=== PATIENT | female | born 1990 | race Caucasian/White ===

== ENCOUNTER 2017-04-27 17:22 | Inpatient (IN) | payer MEDICAID, OTHER ==
[2017-04-27] MEDS ORDERED: PENICILLIN G POTASSIUM 5 MILLIONUNT in DEXTROSE 5 % IN WATER 100 ML IV ONE ×2 (18:07)
[2017-04-27] MEDS ORDERED: RINGER'S SOLUTION,LACTATED 1,000 ML IV PRN ×2 (18:16→19:27)
--- NOTE | 2017-04-27 18:49 | HP ---
Chief Complaint - Chief Complaint Date of Service: 04/27/17 Time of Service: 18:28 Chief Complaint: leaking fluid History of Present Illness: To [facility] labor and delivery complaining of leaking of fluid since morning. Patient's states she was seen at [facility] for above complaint. Hospital records reveal an SANIA of 21 cm and no signs of ruptured membranes. Patient was breech at that time and was given betamethasone. She continues having leaking of fluid and noted to have gross rupture of membranes with positive nitrazine. Bedside ultrasound reveals baby in fredy breech presentation with a subjectively adequate amount of amniotic fluid. Patient complains of contractions every 2-3 minutes of moderate intensity. She denies headache, epigastric pain, nausea, vomiting, fever, chills, or foul- smelling vaginal discharge. This complicated by depression and migraines. - Patient's Past Medical History Patient History - Medical: Depression, Migraines Patient History - Cardiac/Respiratory: No pertinent hx Patient History - Cancer: No Hx of Cancer Patient History - Surgical Procedures: Urology - bilateral ureteral reimplantation 1994 Patient History - Other: None LMP (females 10-50): - 35 1/7 wks by LMP LMP (Calendar): 08/24/16 - Family History Family History:: no untoward family reactions to anesthesia, no familial bleeding tendencies, no family history of clotting disorders, no family history of premature - Social History Psych History: Hx of Depression Does anyone smoke in the home?: Yes Smoking Status: Current every day smoker Cigarettes Packs Per Day: 5 Have you smoked in the past 12 months: No Do you dip or chew tobacco: No Smoking Start Date: 03/25/08 Patient requests Smoking Cessation Consult: No Initiate information on Smoking Cessation: Yes Alcohol Use: none Drug Use: none - Immunizations Immunizations Up to Date: Yes Review Of Systems (GEN) - Review of Systems EENTM: Present: No Symptoms Reported Respiratory: Present: No Symptoms Reported Cardiac: Present: No Symptoms Reported Abdominal: Present: Other - contractions Genitourinary: Present: Other - leakin fluid x 5 days Musculoskeletal: Present: No Symptoms Reported Neurological: Present: No Symptoms Reported Skin: Present: No Symptoms Reported Endocrine: Present: No Symptoms Reported Allergies/Adverse Reactions: Allergies Allergy/AdvReac Type Severity Reaction Status Date / Time No Known Allergies Allergy Verified 04/27/17 17:33 Home Medications: HOME MEDICATIONS Acetaminophen with Codeine [Tylenol with Codeine #3 Tablet] 1 each PO Q6H PRN [Last Taken 04/26/17] Vits96/Iron Fum/Folic [ S] 1 tab PO DAILY 04/27/17 [Last Taken 04/27/17 09:00] Procardia Xl 04/27/17 [Last Taken 04/27/17] Sertraline HCl [Zoloft] 50 mg PO DAILY 04/27/17 [Last Taken 04/27/17 09:00] traMADol HCL 04/27/17 [Last Taken 04/25/17] Exam - Exam Constitutional: Present: Alert, Oriented x3, Cooperative, No distress ENT Exam: Present: hearing grossly normal Neck: Present: non-tender Back Exam: Present: no CVA tenderness Breasts: Present: Exam deferred Respiratory: Present: lungs clear, normal breath sounds Cardiovascular/Chest: Present: normal peripheral pulses, regular rate, rhythm, no edema Abdomen: Present: soft, nontender, obese /Rectal: Present: External genitalia normal, Other - cervix /-3, gross ROM - clear fluid Extremity: Present: normal range of motion, non-tender, no pedal edema, no calf tenderness Skin Exam: Present: normal color, warm/dry, no cyanosis Neurologic: Present: oriented x 3 Appearance: Present: appropriate appearance, appropriate insight Eye contact: Present: cooperative, good eye contact, normal speech Thoughts: Present: normal thought pattern, normal mood /affect Assessment/Plan - Narrative Narrative: 35 1/7 week intrauterine in labor with premature rupture of membranes and breech presentation. Because presenting part is not firmly applied to the cervix transport to a tertiary care center is too dangerous at this moment. Risk, benefits, and alternatives discussed with patient. She desires a trial of external cephalic version with the understanding of possible emergent section. If version is successful we'll transferred to [facility] and [facility] if remains stable for transport. - Assessment/Plan (1) labor in third trimester Problem: Acute Qualifiers: Fetus number: single or unspecified fetus Qualified Code(s): O60.14X0 - labor third trimester with delivery third trimester, not applicable or unspecified (2) Breech presentation Problem: Acute Qualifiers: Fetus number: single or unspecified fetus Qualified Code(s): O32.1XX0 - Maternal care for breech presentation, not applicable or unspecified (3) Premature rupture of membranes (PROM) affecting fourth Assessment: External cephalic version performed that baby quickly reverted back to double footling breech presentation. Risks benefits alternatives discussed with the patient she does not desire further attempt at external cephalic version and would like to proceed with section. Problem: Acute
[2017-04-27] MEDS ORDERED: TERBUTALINE SULFATE 1 MG/ML VIAL SC PRN (18:50)
[2017-04-27] MEDS ORDERED: TERBUTALINE SULFATE 1 MG/ML VIAL ONE (18:50)
[2017-04-27] MEDS ORDERED: ceFAZolin SODIUM/DEXTROSE,ISO 2 GM/50 ML BAG IV ONE (19:27)
[2017-04-27] MEDS ORDERED: OXYTOCIN 20 UNITS in RINGER'S SOLUTION,LACTATED 1,000 ML IV ONE (19:27)
[2017-04-27] MEDS ORDERED: RINGER'S SOLUTION,LACTATED 900 ML IV ONE (19:40)
[2017-04-27] MEDS ORDERED: RINGER'S SOLUTION,LACTATED 1,000 ML IV ONE (21:03)
--- NOTE | 2017-04-27 21:32 | OR ---
Anesthesia Procedure Note - Anesthesia Procedure Note Date of Service: 04/27/17 Narrative: Vital Signs - Last Taken Temp 36.2 C L 04/27/17 21:30 Pulse 98 04/27/17 21:30 Resp 19 04/27/17 21:30 BP 126/82 04/27/17 21:30 Pulse Ox 100 04/27/17 21:30 O2 Oxygen Delivery Method Room Air 04/27/17 21:31 ANESTHESIA PROCEDURE NOTE Date of Procedure: 04/27/2017. Time of procedure: 2114. Performed by: Rom Morris CRNA Cheese Production Supervisor: None. Preprocedure diagnosis: Status post primary . Post procedure diagnosis: Same. Procedure: Bilateral ultrasound-guided transversus abdominis plane block for postop analgesia. Indications: The patient is a 27 -year-old female post section. Findings: See below. Details of the procedure: ChloraPrep was used on the patient's abdomen and the procedure was performed under sterile technique. The right abdominal fascial layer between the internal oblique muscle and the transversus abdominis muscles was identified under ultrasound guidance. A 22-gauge 4 inch block needle was inserted under ultrasound guidance to the target fascial plane. 15 mL's of 0.5 % bupivacaine plus epinephrine 1 200,000 was injected after negative aspiration for blood. The needle was removed intact and the procedure was then repeated at the left side. No complications were noted. The images were retained in the Hospital medical database . EBL: Minimal. Fluids: N/A. Specimen: N/A. Post procedure condition: The patient tolerated the procedure well. No complications were noted. Thank you for this consultation. Rom Morris CRNA
--- NOTE | 2017-04-27 21:38 | OR ---
Operative Report - Dictated Report Narrative: Pre Operative Diagnosis: 35 1/7 weeks intrauterine , premature ruptured membranes, labor, double footling breech presentation with failed external cephalic version Post Operative Diagnosis: Same. Procedure Preformed: Primary Low Transverse Section, abdominal scar revision (16 cm) Surgeon: Geraldo Masters DO Sky Line Yarder: OR Staff Anesthesia: Spinal ,TAP block Estimated Blood Loss: 300 mL Urine Output: 200 mL Fluids Given: 1900 mL Drains: Morrow to gravity Surgical Complications: None Specimens: Placenta to pathology Findings: Female born at 2012 on 04/27/2016 with Apgars 9 and 9, weighing 2902 g in double footling breech presentation. Normal uterus, tubes, ovaries. Indication: 27-year-old 4 para 3 at 35-1/7 weeks presented with pre- term premature ruptured membranes in labor with double footling breech presentation. After counseling on the risks, benefits, and alternatives, an external cephalic version was attempted. The baby converted to cephalic presentation but quickly reverted back to its breech presentation. Patient declined further attempts at external cephalic version and we proceeded with a primary low transverse section. Patient had 2 urological surgeries at age 5 with a lower abdominal incision with bothersome skin retraction, therefore this incision was excised. Technique: The patient was taken to the operating room and placed in dorsal supine position with a left lateral tilt. After adequate spinal anesthesia, morrow catheter insertion,SCDs placed, and 2 g of Ancef given preoperatively, an elliptical incision was made over the previous scar. The incision was extended to the fascia which was nicked in midline and extended laterally with blunt and sharp dissection on either end. The rectus muscles were and the peritoneal cavity was entered with blunt dissection. Two rolled laps were placed in the pericolic gutters on either side of the uterus. A transverse incision was made in the lower uterine segment and extended laterally and upwardly with digital traction. Clear fluid was noted upon amniotomy. The infant was delivered easily. The cord was clamped and cut and was handed off to awaiting dermatology nurse practitioner. The placenta was allowed to deliver spontaneously. The uterus was cleared of clot and debris. Uterine incision was closed with 0 Vicryl using a running stitch. A second imbricating layer was placed. Excellent hemostasis was noted. Rolled laps were removed from the abdominal cavitiy. The peritoneum was closed with a running 3-0 Monocryl. The same suture was used to approximate the rectus and pyramidalis muscles. The fascia was closed with a running 0 Vicryl. The subcutaneous layer was closed with a running 3-0 Monocryl. The same suture was used to approximate the subdermal layer. The skin was closed with a running 4-0 Monocryl and Dermabond. Sponge, lap, needle, and instrument count were correct x 2. Disposition: The patient was transferred to post anesthesia care unit in good condition
[2017-04-27] MEDS ORDERED: SENNOSIDES 8.6 MG TABLET PO PRN (22:32)
[2017-04-27] MEDS ORDERED: BISACODYL 10 MG SUPP.RECT RC PRN (22:32)
[2017-04-27] MEDS ORDERED: SIMETHICONE 80 MG TAB.CHEW PO PRN (22:32)
[2017-04-27] MEDS ORDERED: ONDANSETRON HCL/PF 2 MG/ML VIAL IV PRN (22:32)
[2017-04-27] MEDS ORDERED: oxyCODONE HCL/ACETAMINOPHEN 1 TAB TABLET PO PRN (22:32)
[2017-04-27 22:43] LABS: Cocaine Ur Negative (NEGATIVE); Urine Barbiturate Negative (NEGATIVE); Urine Benzodiazepines Negative (NEGATIVE); Urine Opiates Negative (NEGATIVE); Urine PCP Negative (NEGATIVE); Urine THC Negative (NEGATIVE)
[2017-04-27] MEDS: IBUPROFEN 800 MG TABLET PO PRN (23:17)
[2017-04-27] MEDS: oxyCODONE HCL/ACETAMINOPHEN 1 TAB TABLET PO PRN (23:17)
[2017-04-28] MEDS: oxyCODONE HCL/ACETAMINOPHEN 1 TAB TABLET PO PRN ×4 (04:32→19:35)
[2017-04-28] MEDS: IBUPROFEN 800 MG TABLET PO PRN ×2 (08:50→19:34)
[2017-04-28] MEDS: DOCUSATE SODIUM 100 MG CAPSULE PO SCH ×2 (09:32→21:23)
[2017-04-28] MEDS: ENOXAPARIN SODIUM 40 MG/0.4 ML SYRG SC SCH (09:39)
--- NOTE | 2017-04-28 10:55 | PN ---
Subjective - Date and Time Seen Date: 04/28/17 Time: 10:53 Objective - Vitals Vitals: Last Vital Signs Temp 36.6 C 04/28/17 10:28 Pulse 86 04/28/17 10:28 Resp 18 04/28/17 10:28 BP 110/60 04/28/17 10:28 Pulse Ox 99 04/28/17 10:28 Patient denies complaints. Tolerating regular diet. Ambulating without difficulty. Pain well controlled. Lochia wnl. Abdomen - soft, appropriately tender Incision - clean, dry, intact Uterus - firm, at umbilicus -1 No calf tenderness Impression: Post op day #1 s/p primary section with abdominal scar revision from previous urological surgery. 35 1/7 week delivery-baby being transferred this morning to [facility] and [facility] for unstable blood sugars and respiratory problems. Plan: Continue routine post-operative/ care. We'll plan on early discharge tomorrow if mother continues to do well. Cauti Physician Documentation - Urinary Catheter Management 3-way Urethral Date of Insertion: 04/27/17 Time of Insertion: 19:55 Date of Removal: 04/28/17 Time of Removal: 08:00 Assessment/Plan - Problems/Diagnosis (1) labor in third trimester Problem: Acute Qualifiers: Fetus number: single or unspecified fetus Qualified Code(s): O60.14X0 - labor third trimester with delivery third trimester, not applicable or unspecified (2) Breech presentation Problem: Acute Qualifiers: Fetus number: single or unspecified fetus Qualified Code(s): O32.1XX0 - Maternal care for breech presentation, not applicable or unspecified (3) Premature rupture of membranes (PROM) affecting fourth Problem: Acute
[2017-04-29] MEDS: oxyCODONE HCL/ACETAMINOPHEN 1 TAB TABLET PO PRN ×3 (01:19→13:48)
[2017-04-29] MEDS: IBUPROFEN 800 MG TABLET PO PRN ×2 (07:35→13:48)
[2017-04-29 08:21] VITALS: BP 138/85
[2017-04-29] MEDS: ENOXAPARIN SODIUM 40 MG/0.4 ML SYRG SC SCH (09:42)
[2017-04-29] MEDS: DOCUSATE SODIUM 100 MG CAPSULE PO SCH (09:42)
--- NOTE | 2017-04-29 13:22 | PN ---
Subjective - Date and Time Seen Date: 04/29/17 Time: 13:19 Objective - Vitals Vitals: Last Vital Signs Temp 36.5 C 04/29/17 07:30 Pulse 80 04/29/17 07:30 Resp 20 04/29/17 07:30 BP 138/85 04/29/17 07:30 Pulse Ox 100 04/29/17 07:30 Patient denies complaints. Ambulating well. Tolerating regular diet. Pain well controlled. Lochia wnl. Abdomen - soft, appropriately tender Incision - clean, dry, intact Uterus - firm, at umbilicus -2 No calf tenderness Impression: Post op day #2 s/p primary section with abdominal scar revision from previous urological surgery. 35 1/7 week delivery-baby being transferred this morning to [facility] for unstable blood sugars and respiratory problems. Plan: Continue routine post-operative/ care. Routine discharge instructions. Follow-up with her [employer] in 2 weeks for incision check and to schedule tubal ligation. Cauti Physician Documentation - Urinary Catheter Management 3-way Urethral Date of Insertion: 04/27/17 Time of Insertion: 19:55 Date of Removal: 04/28/17 Time of Removal: 08:00 Assessment/Plan - Problems/Diagnosis (1) labor in third trimester Problem: Acute Qualifiers: Fetus number: single or unspecified fetus Qualified Code(s): O60.14X0 - labor third trimester with delivery third trimester, not applicable or unspecified (2) Breech presentation Problem: Acute Qualifiers: Fetus number: single or unspecified fetus Qualified Code(s): O32.1XX0 - Maternal care for breech presentation, not applicable or unspecified (3) Premature rupture of membranes (PROM) affecting fourth Problem: Acute
== END 2017-04-29 14:00 | disposition home or self-care (01) | DRG 765 ==
LOC: OBCLINIC 17:22 → OB 17:57
PROVIDERS: ADMIT Obstetrics & Gynecology; ATTEND Obstetrics & Gynecology
PROC: 4A1HXCZ Monitoring of Products of Conception, Cardiac Rate, External Approach (ICD-10-PCS; 2017-04-27)
PROC: 10S0XZZ Reposition Products of Conception, External Approach (ICD-10-PCS; 2017-04-27)
PROC: 10D00Z1 Extraction of Products of Conception, Low, Open Approach (ICD-10-PCS; principal; 2017-04-27 19:19)
DX: O32.1XX0 Maternal care for breech presentation, not applicable or unspecified (principal); O60.14X0 Preterm labor third trimester with preterm delivery third trimester, not applicable or unspecified; O99.344 Other mental disorders complicating childbirth; F32.9 Major depressive disorder, single episode, unspecified; Z3A.35 35 weeks gestation of pregnancy; Z37.0 Single live birth; Z79.899 Other long term (current) drug therapy